=== PATIENT | male | born 1995 | race Asian ===

== ENCOUNTER 2023-03-06 14:59 | Emergency (ER) | payer OTHER ==
[2023-03-06 15:35] VITALS: BP 148/90; O2SAT 98
--- NOTE | 2023-03-06 17:13 | ED Physician Documentation ---
PD HPI SKIN - Stated complaint Stated Complaint: LUMPS LEGS ARMS - Chief complaint Chief Complaint: Wound - History obtained from History obtained from: Patient - Additional information Additional information: 27-year-old male presents with pruritic bites on his lower legs and some on the left thigh and right elbow. He states he felt like he got bit by something when doing exercises in [place] weeks ago. He had some small bug bite looking lesions on the legs which were pruritic. They scabbed over and he thought they were getting better. He came out to [place] on February 21 and since then he has noticed a new lesion on the left upper thigh and some Furtick lesions on the right elbow. He states no new bites or stings to his knowledge and he was concern for possible scabies. He states he lives in the [facility] but has a private room, and no one else in the area has similar rash. He states areas are itchy, they are not painful, there is been no drainage. He has no history of eczema or other dermatitis. He denies any other systemic symptoms. He has put on hydrocortisone cream without relief. PD PAST MEDICAL HISTORY - Past Medical History Past Medical History: No - Past Surgical History Past Surgical History: No - Present Medications Home Medications: Ambulatory Orders Medication Instructions Recorded Confirmed Permethrin 5% Cream 60 applic TOP ONCE #60 gm 03/06/23 Triamcinolone 0.5% Cream [Kenalog 1 applic TOP BID #15 gm 03/06/23 0.5% Cream] - Allergies Allergies/Adverse Reactions: Allergies Allergy/AdvReac Type Severity Reaction Status Date / Time No Known Drug Allergies Allergy Verified 03/06/23 15:29 - Social History Does the pt smoke?: No Smoking Status: Never smoker PD ED PE NORMAL - Vitals Vital signs reviewed: Yes - General General: Alert and oriented X 3, No acute distress, Well developed/nourished - HEENT HEENT: Atraumatic, Moist mucous membranes - Derm Derm: Normal color, Warm and dry, Other (There are scattered healed bites with scab on the right and left lower leg, 1 lesion on the left thigh, 1 on the right elbow. There purplish red, nontender, pruritic. No induration or abscess.) - Extremities Extremities: No deformity, No tenderness to palpate, Normal ROM s pain, No edema Results - Vitals Vitals: Vital Signs - 24 hr 03/06/23 15:26 Temperature 36.3 C L Heart Rate 94 Respiratory 18 Rate Blood Pressure 148/90 H O2 Saturation 98 PD Medical Decision Making - ED course Complexity details: considered differential ED course: 27-year-old male presents with concern for possible scabies versus other rash. He has several known tender lesions on the lower legs, right arm and left upper thigh. These lesions are nontender, there is no sign of abscess or infection. Not clear what is causing them but I think reasonable to try a course of permethrin and he can use a stronger topical steroid such as triamcinolone to these areas. He was advised that if he continues develop new lesions, follow-up with PCP, consider referral for dermatology. At this time no emergent treatment is necessary. Departure - Departure Disposition: 01 Home, Self Care Condition: Good Prescriptions: Triamcinolone 0.5% Cream [Kenalog 0.5% Cream] 1 applic TOP BID #15 gm Permethrin 5% Cream 60 applic TOP ONCE #60 gm Comments: It is not clear what is causing these griffiths on your skin. I think it is unl ikely that scabies but I am going to give you treatment for scabies and other mites. Apply the lotion from head to toe though avoiding her face, and leave on for 8 to 14 hours and then shower. You can repeat this treatment after 2 weeks if you still have lesions. I have also given you a stronger steroid to try on the spots. You can use this for up to a week. If you are still having symptoms worse griffiths, please follow-up with your primary doctor and possibly refer to dermatology. Forms: PCP List
== END 2023-03-06 17:20 | disposition home or self-care (01) ==
LOC: ED 14:59
DX: L98.9 Disorder of the skin and subcutaneous tissue, unspecified (principal)
CPT/HCPCS: 99282; 99283